=== PATIENT | male | born 1995 | race African-American/Black ===

== ENCOUNTER 2018-10-26 05:01 | Inpatient (IN) ==
[2018-10-26] MEDS ORDERED: MORPHINE IV ONE (05:32)
[2018-10-26] MEDS ORDERED: NS 1,000 ML IV ONE ×3 (05:32→10:36)
[2018-10-26] MEDS ORDERED: ZOFRAN IV ONE (05:32)
[2018-10-26 06:36] LABS: AGAP 11; ALBUMIN 4.9 g/dL (3.5-5.0); ALKALINE PHOSPHATASE 54 U/L (32-122); BUN 11 mg/dL (8-22); CALCIUM 9.4 mg/dL (8.8-10.2); CHLORIDE 102 mmol/L (98-107); COSMO 286; CREATININE 0.9 mg/dL (0.7-1.2); ESTIMATED GFR > 60; GLUCOSE 127 mg/dL (70-104); GOT 21 U/L (10-34); GPT 15 U/L (10-44); LIPASE 19 U/L (13-60); POTASSIUM 3.9 mmol/L (3.5-5.1); SODIUM 143 mmol/L (136-145); TCO2 30 mmol/L (25-35); TOTAL PROTEIN 7.2 g/dL (6.3-8.3)
[2018-10-26 06:37] LABS: BASO# 0.02 X1000 (0.0-0.2); BASO% 0.1 % (0.0-0.8); HEMATOCRIT 41.3 % (42.0-52.0); HEMOGLOBIN 13.7 g/dL (14.0-18.0); IMM GRAN# 0.04 X1000 (0.0-0.04); IMM GRAN% 0.3 % (0.0-0.5); LYMPH# 0.94 X1000 (1.2-3.4); LYMPH% 6.2 % (20.5-51.1); MCH 27.4 PG (27-31); MCHC 33.2 g/dL (33-37); MCV 82.6 FL (81-99); MONO# 0.81 X1000 (0.11-0.59); MONO% 5.4 % (1.7-9.3); MPV 10.7 FL (7.4-10.4); NEUT# 13.27 X1000 (1.4-6.5); PLT 227 X1000 (130-400); RDW 12.5 % (11.5-14.5); WBC 15.08 X1000 (4.8-10.8)
[2018-10-26 07:01] LABS: BILIRUBIN URINE NEGATIVE (NEGATIVE); BLOOD URINE NEGATIVE (NEGATIVE); CLARITY CLEAR (CLEAR); COLOR YELLOW; GLUCOSE URINE NEGATIVE (NEGATIVE); KETONE URINE 2+(Moderate) mg/dL (NEGATIVE); LEUKOCYTES URINE TRACE (NEGATIVE); NITRITE URINE NEGATIVE (NEGATIVE); PH URINE 6.5; PROTEIN URINE TRACE mg/dL (NEGATIVE); URINE BACTERIA NEGATIVE /HFP; URINE CAST NONE SEEN /LPF; URINE CRYSTAL NONE SEEN /HPF; URINE EPITHELIAL CELLS <10 /HPF (<10); URINE RBC <10 /HPF (<10); URINE SOURCE CLEAN CATCH; URINE WBC <10 /HPF (<10); URINE YEAST NONE SEEN /HPF; UROBILINOGEN URINE 1 mg/dL
--- NOTE | 2018-10-26 07:29 | PROVIDER DOCUMENTATION ---
HPI-Abdominal Pain/GI Problem - General Chief Complaint: Abdominal Pain Stated Complaint: STOMACH PAIN Time Seen by Provider: 10/26/18 05:15 Allergies/Adverse Reactions: Patient Allergies Allergy/AdvReac Type Severity Reaction Status Date / Time No Known Allergies Allergy Verified 03/12/15 17:30 Home Medications: Home Medication List Medication Instructions Recorded Confirmed Last Taken Type NK [No Home Medications] 10/26/18 10/26/18 Unknown History - History of Present Illness-ABD Nature of Presenting Problems: Abdominal pain followed by vomiting starting at 2300. No diarrhea. He denies previous such episode. He states the pain is constant without aggravating or alleviating factors and is most intense in the middle of his abdomen. Review of Systems - Adult - REVIEW OF SYSTEMS - ADULT Constitutional: reports: no symptoms reported Eyes: reports: no symptoms reported Ears, Nose, Mouth & Throat: reports: no symptoms reported Cardiovascular: reports: no symptoms reported Gastrointestinal: reports: see HPI Genitourinary: reports: no symptoms reported Musculoskeletal: reports: no symptoms reported Integumentary: reports: no symptoms reported Neurological: reports: no symptoms reported Psychiatric: reports: no symptoms reported Endocrine: reports: no symptoms reported Hematologic/Lymphatic: reports: no symptoms reported Allergic/Immunologic: reports: no symptoms reported Past History - Adult - PAST MEDICAL HISTORY-ADULT Review of Records: reports: Old Records Reviewed Cardiovascular: reports: denies history Respiratory: reports: denies history Gastrointestinal: reports: denies history Genitourinary: reports: denies history Musculoskeletal: reports: denies history Psychiatric: reports: denies history Endocrine/Immune: reports: denies history - PRIOR SURGERIES/PROCEDURES Surgical/Procedure History: reports: tonsillectomy Physical Exam-General - PHYSICAL EXAM-ADULT Initial Vital Signs Reviewed: Yes - CONSTITUTIONAL General Appearance: appears well, alert, no apparent distress - EYES Eyes: PERRL/EOMI, pink conjunctivae. negative: scleral icterus - HEAD, EARS, NOSE, MOUTH & THROAT HENMT: normocephalic/atraumatic, moist mucous membranes - NECK Neck: non-tender, full range of motion, supple - RESPIRATORY Respiratory: chest non-tender, lungs clear, normal breath sounds - CARDIOVASCULAR Cardiovascular: normal peripheral pulses, regular rate, rhythm, no edema, no JVD - GASTROINTESTINAL (ABDOMEN) Abdominal Exam: normal bowel sounds, no pulsatile mass, guarding (guarding in epigastrium and RLQ.), tenderness. negative: distended, rigid, rebound - LYMPHATIC Lymphatic: no adenopathy - MUSCULOSKELETAL Back Exam: normal inspection, no CVA tenderness, no vertebral tenderness Extremity: normal range of motion, non-tender - SKIN Integumentary: normal color, normal turgor, warm/dry. negative: rash - NEUROLOGIC Neurologic: grossly normal - PSYCHIATRIC Psych/Mental Status: normal mood/affect Progress - PLAN OF CARE/RESULTS Progress/Plan/Lab Results: Vital Signs - 8 hr 10/26/18 05:04 10/26/18 06:27 Temperature 97.4 F L Pulse Rate 61 55 L Respiratory Rate 16 18 Blood Pressure 108/50 110/85 O2 Sat by Pulse Oximetry 97 98 Laboratory Results - last 24 hr 10/26/18 10/26/18 10/26/18 05:34 05:34 06:35 WBC 15.08 H RBC 5.00 Hgb 13.7 L Hct 41.3 L MCV 82.6 MCH 27.4 MCHC 33.2 RDW Std Deviation 12.5 Plt Count 227 MPV 10.7 H Immature Gran % (Auto) 0.3 Neut % (Auto) 88.0 H Lymph % (Auto) 6.2 L [place] % (Auto) 5.4 Eos % (Auto) 0.0 Baso % (Auto) 0.1 Immature Gran # (Auto) 0.04 Neut # (Auto) 13.27 H Lymph # (Auto) 0.94 L [place] # (Auto) 0.81 H Eos # (Auto) 0.00 Baso # (Auto) 0.02 Sodium 143 Potassium 3.9 Chloride 102 Carbon Dioxide 30 Anion Gap 11 BUN 11 Creatinine 0.9 Estimated GFR/1.73 m2 > 60 BUN/Creatinine Ratio 12 Glucose 127 H Calculated Osmolality 286 Calcium 9.4 Total Bilirubin 1.00 AST 21 ALT 15 Alkaline Phosphatase 54 Total Protein 7.2 Albumin 4.9 Globulin 2.0 Albumin/Globulin Ratio 2.0 Lipase 19 Urine Source CLEAN CATCH Urine Color YELLOW Urine Clarity CLEAR Urine pH 6.5 Ur Specific [place] 1.020 Urine Protein TRACE A Urine Ketones 2+(Moderate) A Urine Blood NEGATIVE Urine Nitrite NEGATIVE Urine Bilirubin NEGATIVE Urine Urobilinogen 1 Urine Microscopic RBC <10 Urine WBC TRACE A Urine Microscopic WBC <10 Ur Epithelial Cells <10 Urine Crystals NONE SEEN Urine Bacteria NEGATIVE Urine Casts NONE SEEN Urine Yeast NONE SEEN Urine Glucose NEGATIVE Orders Category Date Time Status CT ABD/PELVIS W/IV CONT ONLY [CT] Stat Exams 10/26/18 06:44 Taken CBC WITH ELECTRONIC DIFF [HEME] Stat Lab 10/26/18 05:34 Completed COMPREHENSIVE METABOLIC PANEL [CHEM] Stat Lab 10/26/18 05:34 Completed LIPASE [CHEM] Stat Lab 10/26/18 05:34 Completed UA NIMS W/REFLEX CULT PL [URINALYSIS] Stat Lab 10/26/18 06:35 Completed URINE CULTURE [RM] Routine Lab 10/26/18 07:01 Ordered 0.9% Sodium Chloride Inj [Ns] 1,000 ml Med 10/26/18 05:32 Discontinued IV 999 mls/hr Morphine Med 10/26/18 05:32 Discontinued 4 mg IV NOW ONE Ondansetron [Zofran] Med 10/26/18 05:32 Discontinued 4 mg IV NOW ONE Clinically stable under my care. He was given morphine/zofran and IV NS. CT a/p pending at the end of my shift. He was signed out to Dr Martinez on the day shift to re-evaluate after CT and determine dispo. Result Diagrams: 10/26/18 05:34 10/26/18 05:34 - CONSULTS/PCP/HOSPITALIST Notification #1 *Consult/PCP/Hospitalist*: Dr Bourne Time Discussed: 09:18 Reason/Comments: asked for zosyn and npo. Admit to him Consult Disposition: Admit Departure - Departure Date of Disposition Decision: 10/26/18 Time of Disposition Decision: 09:19 DIAGNOSIS: Acute appendicitis Qualifiers: Acute appendicitis type: with localized peritonitis Appendicitis gangrene presence: without gangrene Appendicitis perforation presence: without perforation Appendicitis abscess presence: without abscess Qualified Code(s): K35.30 - Acute appendicitis with localized peritonitis, without perforation or gangrene Disposition: ADMITTED INPATIENT 09 Certified Medical Emergency: Emergent Condition: Fair - Critical Care Note This patient required my direct & personal management of CC.: Yes Total Time (mins): 35 Critical Care Statement: This patient required my direct personal management to treat or rule out processes, the absence of which, could potentiallly result in sudden, clinically significant life or limb threatening deterioration. Attestation - Physician/ MARILYN Attestation Patient care was provided by Advanced Practice Provider:: No The physician spent face to face time with patient:: Yes Advanced Practice Provider documentation review:: Supervising physician onsite and consulted in the evaluation and care of this patient. The physician did have a face to face encounter with the patient.
--- NOTE | 2018-10-26 08:17 | EKG Report ---
Test Performed on : 10/26/2018 06:25:00 AM Test Reason : ER Blood Pressure : / mmHG Vent. Rate : 050 BPM Atrial Rate : 050 BPM P-R Int : 202 ms QRS Dur : 088 ms QT Int : 434 ms P-R-T Axes : 067 093 084 degrees QTc Int : 395 ms Sinus bradycardia. with marked sinus arrhythmia. Rightward axis ST elevation, probably due to early repolarization Nonspecific ST abnormality Abnormal ECG No previous ECGs available Unconfirmed Result
--- NOTE | 2018-10-26 08:55 | Diag Imaging Result Doc PS360 ---
CT ABD/PELVIS W/IV CONT ONLY - 10/26/2018 INDICATION: RLQ pain. COMPARISON: None FINDINGS: The lung bases are clear and the heart size is normal. The liver, gallbladder, spleen, pancreas, adrenals, and kidneys are normal. There is very little peritoneal fat. There is mild constipation. There is clearly an appendicolith at the lower cecum in the inferior pelvis, in the region of the expected origin of the appendix. This area is retrocecal. The appendix is not visible due to the lack of abdominal fat. There is a small amount of pelvic free fluid. Urinary bladder, prostate, and rectum are normal. Bones are intact and well mineralized. IMPRESSION: Equivocal for acute appendicitis. There is definitely an appendicolith. There is also trace pelvic free fluid. Clinical management is recommended. This exam was performed using automated exposure control, adjustment of mA or kV according to patient size, and/or use of iterative reconstruction technique Electronically signed by Colby Longoria 10/26/2018 8:53 AM
[2018-10-26] MEDS ORDERED: ZOSYN 3.375 GM in NS 50 ML IV ONE ×2 (09:17→17:00)
--- NOTE | 2018-10-26 13:10 | EKG Report ---
Test Performed on : 10/26/2018 12:51:52 PM Test Reason : bradycardia Blood Pressure : / mmHG Vent. Rate : 043 BPM Atrial Rate : 043 BPM P-R Int : 220 ms QRS Dur : 098 ms QT Int : 436 ms P-R-T Axes : 061 093 084 degrees QTc Int : 368 ms Marked sinus bradycardia. with 1st degree AV block. Rightward axis Early repolarization Abnormal ECG When compared with ECG of 26-OCT-2018 06:25, (Unconfirmed) No significant change was found Confirmed by Mirian PAULINO, Moose Farah ([id number]) on 10/26/2018 5:26:13 PM
--- NOTE | 2018-10-26 14:04 | HISTORY AND PHYSICAL ---
Chief Complaint: Abdominal pain HISTORY OF PRESENT ILLNESS: This is a 23-year-old gentleman who developed abdominal pain periumbilically early this morning in the ER where CT scan was obtained that showed a stranding fluid around the appendix with an appendicolith and elevated white count consistent with acute appendicitis. Some nausea but prior to yesterday, he was in his usual state of health with normal bowel function. MEDICAL HISTORY: Negative. SURGICAL HISTORY: Negative. SOCIAL HISTORY: He does smoke. He works at [employer]. FAMILY HISTORY: Reviewed and negative for cancer. REVIEW OF SYSTEMS: Ten point review of systems negative other than HPI. PHYSICAL EXAMINATION: He is afebrile. Pulse in the 50s. Blood pressure 110/85 on admission, 92/44, and now on oxygen saturation 100 percent. GENERAL: Alert in no acute distress. HEENT: No scleral icterus. No cervical mass. CARDIOVASCULAR: Normal rate. PULMONARY: No increased work of breathing. ABDOMEN: Soft. Tender mostly in the right lower quadrant. There is no angi peritonitis. He indicates pain is more periumbilical. INTEGUMENT: Warm and dry. PSYCHIATRIC: Appropriate affect. NEUROLOGIC: No gross deficits. LYMPHATIC: No cervical adenopathy. LABORATORY: White count 15, hematocrit 41, and platelets 227,000, and creatinine 0.9. LFTs: Amylase and lipase normal. Urinalysis with trace white blood cells. CT scan of the abdomen and pelvis showed an appendicolith. There is some trace fluid in the pelvis and mild stranding around the appendix. ASSESSMENT AND PLAN: This is a 22-year-old gentleman with both clinical and radiographic exam consistent with acute appendicitis. We discussed risk of bleeding, infection, damage to surrounding structures, conversion to open, anticipated recovery, and possibility of intra- abdominal abscess. He understands all this, and consents to laparoscopic appendectomy. We will keep him NPO. He is on Zosyn. He will go to the operating room today for laparoscopic appendectomy. cc: Malcom Bourne MD MTDD
--- NOTE | 2018-10-26 15:49 | CARDIOLOGY CONSULTATION ---
DATE: 10/26/2018 IMPRESSION: 1. Sinus bradycardia, probably vagally mediated in young patient with no cardiovascular history or symptoms. 2. Acute abdominal process. Evaluation and treatment underway. I suspect abdominal symptoms are likely provoking vagally mediated bradycardia. RECOMMENDATIONS: 1. No additional cardiovascular studies would be needed. 2. If patient requires laparotomy or laparoscopic procedure, his perioperative cardiovascular risks should be acceptably low and is probably no different than other patients his age. I will plan on seeing further on an as-needed basis. HISTORY: This 23-year-old male with no prior cardiovascular history was admitted for further evaluation of abdominal pain. He describes left-sided and periumbilical abdominal pain that started last night. He relates that he ate a large pizza and drank some soda. It was after this that he started having abdominal pain. He has had rather persistent pain, and this prompted him to come to the hospital for evaluation. He is suspected of possibly having appendicitis. He has been noted to have bradycardia, and for this reason, Cardiology was consulted. He is an active individual and has no chest symptoms or symptoms of lightheadedness or syncope. PAST MEDICAL HISTORY: 1. Negative for hypertension. 2. Negative for diabetes. 3. Negative for hyperlipidemia. PAST SURGICAL HISTORY: None. ALLERGIES: He has no known drug allergies. MEDICATIONS PRIOR TO ADMISSION: As listed. SOCIAL HISTORY: He lives with family. He works at [employer]. He smokes some marijuana. He also drinks alcohol on a semiregular basis; he is somewhat vague as to the quantity of alcohol he may consume, describes drinking "a pint" at a sitting at times. FAMILY HISTORY: Negative for premature coronary artery disease. REVIEW OF SYSTEMS: Pulmonary: Negative. Gastrointestinal: Noteworthy for abdominal pain and nausea and some vomiting. There has been no melena or bright red blood per rectum. Constitutional: Negative for fever. Remainder of the review of systems negative/noncontributory with 14 total systems reviewed. PHYSICAL EXAMINATION: General: This is a thin adult -[place] male in no distress. Vital signs: Blood pressure 106/59, heart rate 42 and regular with ECG monitor showing sinus bradycardia, oxygen saturation 100% on room air. HEENT: Extraocular movements appear to be intact. Mucous membranes are moist. Neck: Supple without jugular venous distension. There are no carotid bruits. Chest: Clear to auscultation. Cardiac: Exam reveals a regular bradycardia without appreciable murmur, rub, or gallop. Abdomen: Soft. Bowel sounds audible. There is no rebound tenderness. There is some tenderness to palpation in the left side of the abdomen, as well as in the right lower quadrant. Extremities: Without edema. Neurologic: Exam reveals him to be alert and fully oriented. Speech is fluent. Moves all 4 extremities equally well. Skin: Warm, dry. Psychiatric: Reveals mood to be appropriate. DIAGNOSTIC STUDIES: A 12-lead EKG demonstrates sinus bradycardia and normal variant early repolarization. Laboratory data includes a white blood cell count of 15.08, hematocrit 41.3, hemoglobin 13.7, platelet count 227,000. Sodium 143, potassium 3.9, chloride 102, carbon dioxide 30, BUN 11, creatinine 0.9, glucose 127. cc: MD Malcom Huang MD
[2018-10-26] MEDS ORDERED: ROBINUL ONE (16:05)
[2018-10-26] MEDS ORDERED: XYLOCAINE-MPF 2% ONE (16:05)
[2018-10-26] MEDS ORDERED: QUELICIN (DOSE) ONE (16:05)
[2018-10-26] MEDS ORDERED: FENTANYL ONE (16:06)
[2018-10-26] MEDS ORDERED: LR 1,000 ML ONE ×2 (16:06→18:15)
[2018-10-26] MEDS ORDERED: SENSORCAINE 0.25%/EPI 1:200,000 ONE (16:06)
[2018-10-26] MEDS ORDERED: DIPRIVAN 1% ONE (16:07)
[2018-10-26] MEDS ORDERED: DECADRON ONE (17:06)
[2018-10-26] MEDS ORDERED: ZOFRAN ONE (17:06)
[2018-10-26] MEDS ORDERED: TORADOL ONE (17:06)
[2018-10-26] MEDS ORDERED: DEMEROL ONE (17:32)
[2018-10-26] MEDS ORDERED: LR 500 ML ONE (17:39)
[2018-10-26] MEDS ORDERED: NORCO-7.5 ONE (18:21)
[2018-10-26] MEDS ORDERED: NORCO-7.5 PO PRN (18:40)
[2018-10-26] MEDS ORDERED: LR 1,000 ML IV SCH (18:40)
[2018-10-26] MEDS ORDERED: ZOFRAN IV PRN (18:40)
[2018-10-26] MEDS: PERIDEX MT SCH (22:22)
--- NOTE | 2018-10-27 04:15 | OPERATIVE NOTE ---
PROCEDURE DATE: 10/26/2018 PREOPERATIVE DIAGNOSIS: Acute appendicitis. POSTOPERATIVE DIAGNOSIS: Acute appendicitis. PROCEDURE PERFORMED: Laparoscopic appendectomy. ANESTHESIA: General. SPECIMENS: Appendix. INDICATIONS: This is a 23-year-old gentleman with abdominal pain. CT scan has findings consistent with acute appendicitis and a fecalith. OPERATIVE FINDINGS: There was a dilated thickened appendix with no evidence perforation. Normal appendiceal base. The appendix was in a slightly retrocecal and retroileal location. OPERATIVE NOTE: Risks, benefits, alternatives discussed with patient, he consented to the procedure. He was seen preoperatively and surgical site was confirmed. He was taken to the operating room placed supine position. He is on scheduled antibiotics, they are redone. He was taken to the operating room, placed in supine position. General anesthesia was induced. Benito catheter was placed. The abdomen was prepped with chlorhexidine solution, draped in usual fashion. After time-out, a supraumbilical incision was made, carried down to the fascia. The fascia was incised along the midline. The abdomen was entered in a controlled fashion. His abdomen was insufflated after Alicia trocar was placed. Two additional 5 mm trocars were placed, 1 above the reflection of the bladder in the suprapubic location, 1 in the left lower quadrant. The appendix was easily identified. Using the LigaSure device, we divided the mesoappendix as it was in somewhat of a retrocecal location. The gold load 30 mm stapler was used to divide the appendix at its base and was placed in EndoCatch bag. We irrigated the abdomen, confirmed hemostasis and that there was no injury to the surrounding structures. The terminal ileum was quite adherent, but was easily separable and protected. Trocars were removed. The appendix was taken out through the umbilical incision. Fascia was closed with Vicryl suture. Skin was closed with 4-0 Monocryl. Dermabond was applied. Counts correct. Benito was removed. His was transferred to recovery. I spoke to the family. cc: Malcom Bourne MD
[2018-10-27] MEDS: PERIDEX MT SCH (08:56)
[2018-10-27 11:43] VITALS: BP 120/63
--- NOTE | 2018-10-28 13:34 | DISCHARGE SUMMARY ---
ADMISSION DATE: 10/26/2018 DISCHARGE DATE: 10/27/2018 ADMITTING DIAGNOSIS: Acute appendicitis. DISCHARGE DIAGNOSIS: Acute appendicitis. PROCEDURE PERFORMED: Laparoscopic appendectomy. HISTORY OF PRESENT ILLNESS: A 23-year-old gentleman who presented with pain in his abdomen. CT scan in the ER that showed appendicitis. HOSPITAL COURSE: He was taken to surgery on the day of his admission for above procedure. For details, please see dictated operative note. Please also note that he had some asymptomatic bradycardia that we asked Cardiology to evaluate and they felt it was physiologic in nature and cleared him for surgery prior. Taken to the operating room, and he did well, was transferred back. His diet was advanced. He tolerated it and is able void. His pain is controlled. Incision is intact. Abdomen is soft. He is afebrile overnight. He is felt safe for discharge. Follow up with me in 1 week. DISPOSITION: Home to self-care. Discharge instructions were given in written and verbal format. MEDICATIONS: He can take Tylenol and ibuprofen for pain as the pain has been very minimal. cc: Malcom Bourne MD
== END 2018-10-27 14:39 | disposition home or self-care (01) | DRG 343 ==
LOC: P.ED 05:01 → 4N 09:29
PROVIDERS: ADMIT Surgery; ATTEND Surgery